=== PATIENT | female | born 1965 | race Caucasian/White ===

== ENCOUNTER 2017-04-30 09:19 | Emergency (ER) | payer OTHER ==
[~2017-04-30] VITALS: Ht 162.6 cm; Wt 58.0 kg
[~2017-04-30 09:19] MED LIST: ALBU90AE INHALATION; ALPR0.5T6 PO; AMLO5TAB4 PO; AMOX1TAB10 PO; BUTA1CAP39 PO; GEMF600T60 PO; LISI-524 PO; LORA10TA3 PO; METF500T4 PO; TRAM50TA2 PO
[2017-04-30 09:20] VITALS: Ht 162.6 cm; Wt 58.0 kg
[2017-04-30] MEDS ORDERED: IBUPROFEN 600 MG TAB PO ONE (10:00)
--- NOTE | 2017-04-30 10:16 | RADRPT ---
PROCEDURE: XR Chest. CLINICAL INDICATION: Cough, fever TECHNIQUE: Anterior chest x-ray. COMPARISON: 07/10/2016 FINDINGS: The lungs are clear. No pleural effusion identified. There is no evidence of pneumothorax. The cardiomediastinal silhouette is unremarkable. The soft tissues are normal. Osseous structures are unremarkable. IMPRESSION: 1. No acute disease is seen in the chest. RPTAT: QQ .Smith Hoang MD, MD Date Time Electronically viewed and signed by .Smith Hoang MD, on 04/30/2017 10:16 .M/
[2017-04-30] MEDS ORDERED: IBUP-1542 PO (10:25)
[2017-04-30] MEDS ORDERED: SODI126M NASAL (10:25)
[2017-04-30] MEDS ORDERED: GUAI-637 PO (10:25)
--- NOTE | 2017-04-30 11:10 | ERD ---
ER Documentation Chief Complaint Date/Time DATE: 04/30/17 TIME: 10:57 Chief Complaint cough, congestion & fever x6 days HPI 51-year-old female with history of asthma diabetes present ED with cough, nasal congestion, fever, body ache 6 days. Cough is nonproductive, worse at night. Patient states that her throat hurts from the cough. She took DayQuil at home for symptom relief. She denies any shortness of breath. Denies chest pain. Denies abdominal pain, nausea, vomiting, or diarrhea. His neck pain. ROS All systems reviewed and are negative except as per history of present illness. Medications Home Meds Active Scripts Sodium Chloride (Saline Nasal Mist) 126 Ml Mist, 2 SPRAY NASAL Q2H Y for NASAL CONGESTION, #1 BOTTLE Prov:ARY ODOM [employer] 04/30/17 Guaifenesin* (Robitussin*) 100 Mg/5 Ml Syrup, 200 MG PO Q4H Y for COUGH, #120 ML Prov:ARY ODOM NP 04/30/17 Ibuprofen* (Motrin*) 600 Mg Tab, 600 MG PO Q6H Y for PAIN AND OR ELEVATED TEMP, #30 TAB Prov:ARY ODOM [employer] 04/30/17 Amoxicillin/Potassium Clav (Amox-Clav 875-125 mg Tablet) 875-125 mg Tab, 875 MG PO BID for 14 Days, TAB Prov:KISHAN GALVIN 07/10/16 Qpxlswvoyhmwv-Ktuhglnvyv-Nnuksvpe-Codeine* (Fioricet w/ Codeine*) [id number] 30MG Capsule, 1 CAP PO Q6H Y for PAIN LEVEL 1-5, #30 CAP Prov:KISHAN GALVIN 07/10/16 Reported Medications Albuterol Sulfate (Proair Respiclick) 90 Mcg Aer.pow.ba, 1 PUFF INHALATION Q4, # 1 BOTTLE 07/09/16 Gemfibrozil* (Gemfibrozil*) 600 Mg Tablet, 600 MG PO BID, TAB 07/09/16 Amlodipine Besylate* (Norvasc*) 5 Mg Tablet, 5 MG PO DAILY, TAB 07/09/16 Metformin Hcl* (Metformin Hcl*) 500 Mg Tablet, 500 MG PO WITH BREAKFAST DINNE, # 60 TAB 07/09/16 Alprazolam* (Alprazolam*) 0.5 Mg Tablet, 0.5 MG PO QHS Y for ANXIETY, TAB 07/09/16 Loratadine* (Loratadine*) 10 Mg Tablet, 10 MG PO DAILY, #30 TAB 07/09/16 Tramadol HCl (Tramadol HCl) 50 Mg Tablet, 50 MG PO Q6 06/15/11 Lisinopril* (Zestril*) 10 Mg Tablet, 10 MG PO BID 06/15/11 Allergies Allergies: Coded Allergies: No Known Drug Allergy (Verified Allergy, Unknown, 07/09/16) PMhx/Soc History of Surgery: Yes (ovarian surgery, ear surgery, hemorrhoidectomy) Anesthesia Reaction: No Hx Neurological Disorder: No Hx Respiratory Disorders: No Hx Cardiac Disorders: Yes (HTN) Hx Psychiatric Problems: No Hx Miscellaneous Medical Probl: Yes (DM) Hx Alcohol Use: No Hx Substance Use: No Hx Tobacco Use: No Smoking Status: Never smoker Physical Exam Vitals Vital Signs Date Time Temp Pulse Resp B/P Pulse Ox O2 Delivery O2 Flow Rate FiO2 04/30/17 09:20 101.4 112 18 131/78 98 Physical Exam General: Well-developed, well-nourished, conscious and coherent, in no distress Skin: Warm and dry without rash, good texture and turgor Head: Normocephalic without evidence of trauma Eyes: Sclera and conjunctivae normal; pupils equal, round, and reactive to light; extraocular movements are intact Nose/Face: Mucosa erythematous and swollen. Mouth/throat: Mucous membranes are moist. Posterior pharynx clear without erythema or exudates Neck: Supple without meningismus or adenopathy. Carotids are equal. Trachea midline. No bruits or JVD Chest: Normal AP diameter. Good expansion without retractions. Nontender. Lungs are clear to auscultate bilaterally with good tidal volume Heart: Regular rate and rhythm. No murmur, rub, or gallops heard Extremities: Full range of motion. Good strength bilaterally. No clubbing, cyanosis, or edema. Peripheral pulses are intact. Sensation intact Neuro: Alert and oriented 4, GCS 15. Cranial nerves grossly intact. Motor and sensory exams nonfocal. Moves all extremities. Speech clear. Gait normal Results 24 hrs Current Medications Medications (Trade) Dose Ordered Sig/Mary Route PRN Reason Start Time Stop Time Status Last Admin Dose Admin Ibuprofen (Motrin) 600 mg ONCE ONCE PO 04/30/17 10:00 04/30/17 10:01 DC 04/30/17 09:42 PROCEDURE: XR Chest. CLINICAL INDICATION: Cough, fever TECHNIQUE: Anterior chest x-ray. COMPARISON: 07/10/2016 FINDINGS: The lungs are clear. No pleural effusion identified. There is no evidence of pneumothorax. The cardiomediastinal silhouette is unremarkable. The soft tissues are normal. Osseous structures are unremarkable. IMPRESSION: 1. No acute disease is seen in the chest. RPTAT: QQ .Smith Hoang MD, MD Date Time Electronically viewed and signed by .Smith Hoang MD, on 04/30/2017 10: 16 .M/ CC: ARY ODOM [employer] Procedures/MDM Well-appearing 51-year-old female history of asthma, diabetes presented to ED with flulike symptoms 6 days. Checks x-ray is negative for any acute processes. I have low suspicion for pneumonia or bronchitis. Low suspicion for meningitis. She is given ibuprofen in the ED for fever reduction. Patient symptoms had lasted for 6 days, I do not feel Tamiflu is beneficial at this time. Patient appears well, stable for discharge and outpatient management. Medical decision making shared with patient and family. Education provided to patient and family. Patient and family expressed understanding of the plan. Medications on discharge: Ibuprofen, saline nasal spray, Robitussin. Follow-up: Primary care provider in 2-3 days or return to ED if worse. Disclaimer: Inadvertent spelling and grammatical errors are likely due to EHR/ dictation software use and do not reflect on the overall quality of patient care. Also, please note that the electronic time recorded on this note does not necessarily reflect the actual time of the patient encounter. Departure Diagnosis: Primary Impression: Flu-like symptoms Condition: Stable Patient Instructions: Adult Self-Care for Colds, Influenza (Adult) Additional Instructions: Call your primary care doctor TOMORROW for an appointment during the next 2-3 days.See the doctor sooner or return here if your condition worsens before your appointment time. ARY ODOM NP Apr 30, 2017 11:10
== END 2017-04-30 10:45 | disposition home or self-care (01) ==
LOC: FTE 09:19
DX: R05 Cough (principal); R09.81 Nasal congestion; R50.9 Fever, unspecified; I10 Essential (primary) hypertension; E11.9 Type 2 diabetes mellitus without complications; J45.909 Unspecified asthma, uncomplicated; Z79.84 Long term (current) use of oral hypoglycemic drugs
CPT/HCPCS: 71010; Z7502; Z7610

== ENCOUNTER 2018-01-06 11:20 | Emergency (ER) | END 2018-01-06 14:35 | disposition home or self-care (01) ==